=== PATIENT | female | born 1985 | race American Indian/Alaskan Native ===

== ENCOUNTER 2017-02-10 22:36 | Emergency (ER) | payer MEDICAID, OTHER ==
[2017-02-10 22:48] VITALS: BP 104/76
== END 2017-02-11 04:00 | disposition left against medical advice (07) ==
LOC: ED 22:36
DX: R10.9 Unspecified abdominal pain (principal); R11.2 Nausea with vomiting, unspecified; R19.7 Diarrhea, unspecified; Z53.21 Procedure and treatment not carried out due to patient leaving prior to being seen by health care provider

== ENCOUNTER 2017-02-11 14:05 | Outpatient (CLI) | payer OTHER ==
--- NOTE | 2017-02-11 14:43 | ED Elopement Review ---
ED Pt Elopement review - Call Back decision Pt Call Back Decision: No action required
--- NOTE | 2017-02-11 17:12 | Cat Scan Report ---
FINAL REPORT PROCEDURE: CT ABDOMEN PELVIS WO CON TECHNIQUE: Computerized axial tomography of the abdomen and pelvis was performed without intravenous contrast. This study is performed without intravascular contrast material and its sensitivity for abdominal and pelvic pathology, including neoplasms, inflammation, abscess, free fluid, thrombosis, arterial dissection and infarction, is reduced compared with a contrast enhanced study. HISTORY: ABDOMINAL PAIN COMPARISON: No prior studies are available for comparison. FINDINGS: The liver and spleen appear normal. Gallbladder and pancreas display no abnormalities. The adrenal glands and abdominal aorta are normal in size. No renal abnormality is seen. Normal appendix is seen. No bladder abnormality is seen. Uterus is retroverted. No adnexal masses are seen. GI contrast reaches the rectosigmoid colon. No free pelvic fluid is seen. IMPRESSION: No suspicious abnormality is seen.
== END 2017-02-11 14:06 | disposition home or self-care (01) ==
LOC: CT 14:05
DX: R19.7 Diarrhea, unspecified (principal); N85.4 Malposition of uterus; R10.9 Unspecified abdominal pain
CPT/HCPCS: 74176

== ENCOUNTER 2017-07-06 20:26 | Emergency (ER) | payer OTHER ==
[2017-07-06 20:58] VITALS: BP 115/72
== END 2017-07-07 01:25 | disposition left against medical advice (07) ==
LOC: ED 20:26
DX: M54.2 Cervicalgia (principal); M54.9 Dorsalgia, unspecified; Z53.21 Procedure and treatment not carried out due to patient leaving prior to being seen by health care provider